=== PATIENT | female | born 1940 | race Caucasian/White ===

== ENCOUNTER → 2016-10-28 | Outpatient (CLI) | payer MEDICARE, OTHER ==
[~2016-10-28] MED LIST: ASPI81CH CHEW; B12-1CHW CHEW; BIOTCAP PO; DICL1GEL7 TOPICAL; LEVO25TA4 PO; LIDO1PAD52 TOPICAL; LOSA25TA PO; LUTE20CA PO; PRAV40TA2 PO; RALO1TAB PO; RANI150T PO; SENN1TAB PO; TRAM50TA PO; ZOLO50TA PO; [UNRECOGNIZED DRUG - OTHER]
--- NOTE | 2016-10-30 17:20 | HM ---
Date Performed: 10/28/2016 Time Performed: 12:24:00 HOOKUP DATE: 10/28/16 12:24:00 PM Mon ANALYSIS START TIME: 10/28/2016 12:29:00 PM ANALYSIS END TIME: 10/29/2016 12:20:19 PM PATIENT AGE: 76 PATIENT HEIGHT PATIENT WEIGHT DRUG LIST PATIENT DIAGNOSIS: palpitations TEST NARRATIVE: The patient's average heart rate was 71 BPM. No episodes of tachycardia wer e noted. No episodes of bradycardia were noted. No pauses exceeding 2.0 seconds were noted. 104 ventricular ectopics, which represented < 1% of the total beat count, were noted. The highest ve ntricular ectopic frequency occurred from 09:00 PM to 10:00 PM Mon. During this time 99 VE(s) occurr ed. Ventricular ectopics were observed as 104 isolated beat(s) only. No couplets or runs were noted . 6 supraventricular ectopics, which represented < 1% of the total beat count, were noted. The h ighest supraventricular ectopic frequency occurred from 01:00 AM to 02:00 AM Tue. During this time 2 SVE(s) occurred. No episodes of ST depression (defined as -1.0 mm or more) were noted in channel 1. No episodes of ST depression (defined as -1.0 mm or more) were noted in channel 2. No episodes of ST depression (defined as -1.0 mm or more) were noted in channel 3. TEST INTERPRETATION: Sinus rhythm PVCS PACS Signed by : Lillian flynn
== END ==
LOC: HCAV 12:00
PROVIDERS: ATTEND Family Medicine
DX: R00.2 Palpitations (principal)
CPT/HCPCS: 93225; 93226